=== PATIENT | female | born 1980 | race Two or more races ===

== ENCOUNTER 2018-04-08 10:07 | Outpatient (CLI) | payer OTHER | END 2018-04-08 10:17 | disposition home or self-care (01) | LOC: SONOGRAMA 10:07 | DX: N92.0 Excessive and frequent menstruation with regular cycle (principal); N84.0 Polyp of corpus uteri; N83.202 Unspecified ovarian cyst, left side ==

== ENCOUNTER 2018-05-29 05:59 | Day surgery (SDC) | payer OTHER ==
[2018-05-29] MEDS ORDERED: CODE1TAB37 PO (08:31)
[2018-05-29] MEDS ORDERED: DOXYCYCLINE HY100 MG PO (08:31)
== END 2018-05-29 13:10 | disposition home or self-care (01) ==
LOC: CIR.AMB 05:59
DX: D25.0 Submucous leiomyoma of uterus (principal); N84.0 Polyp of corpus uteri

== ENCOUNTER 2022-01-18 06:31 | Day surgery (SDC) | payer OTHER ==
[~2022-01-18 06:31] MED LIST: CODE1TAB37 PO; DOXYCYCLINE HY100 MG PO
[2022-01-18] MEDS ORDERED: NAPR500T14 PO (14:38)
[2022-01-18] MEDS ORDERED: MORGIDOX100 MG PO (14:38)
== END 2022-01-18 19:35 | disposition home or self-care (01) ==
LOC: CIR.AMB 06:31
PROVIDERS: ATTEND Obstetrics & Gynecology
DX: N84.0 Polyp of corpus uteri (principal); Z20.822 Contact with and (suspected) exposure to COVID-19